=== PATIENT | female | born 1945 | race Two or more races ===

== ENCOUNTER → 2025-02-01 | Outpatient (CLI) | payer MEDICARE, BC, SELFPAY ==
[2025-02-01 10:15] LABS: Basophils # (Auto) 0.0 Thou/mm3 (0.0-0.2); Basophils % (Auto) 1 % (0-2.5); Eosinophils # (Auto) 0.4 Thou/mm3 (0.0-0.5); Eosinophils % (Auto) 12 % (0-10); Hematocrit 41.4 % (36.0-46.0); Hemoglobin 13.8 g/dL (12.0-16.0); Immature Granulocytes Auto 0.00 Thou/mm3 (0.00-0.00); Lymphocytes # (Auto) 1.1 Thou/mm3 (1.0-4.8); Lymphocytes % (Auto) 30 % (10-50); Mean Corpuscular HGB Conc 33.3 g/dl (31.0-37.0); Mean Corpuscular Hemoglobin 30.1 pg (25.0-35.0); Mean Corpuscular Volume 90 fL (80-100); Monocytes # (Auto) 0.3 Thou/mm3 (0.0-0.8); Monocytes % (Auto) 8 % (0-12); Neutrophils # (Auto) 1.8 Thou/mm3 (1.8-7.7); Neutrophils % (Auto) 50 % (37-80); Nucleated Red Blood Cell # 0.00 Thou/mm3 (0.00-0.00); Nucleated Red Blood Cell % 0 /100 WBC (0); Platelet Count 175 Thou/mm3 (140-440); RDW Standard Deviation 44.8 fL (36.4-46.3); Red Blood Count 4.58 Miln/mm3 (4.00-5.20); White Blood Count 3.6 Thou/mm3 (3.6-11.0)
[2025-02-01 10:58] LABS: Alanine Aminotransferase 18 U/L (10-49); Albumin, Serum 4.0 gm/dL (3.4-4.8); Albumin/Globulin Ratio 1.9 (1.2-2.2); Alkaline Phosphatase 102 U/L (46-116); Anion Gap 12 (7-16); Aspartate Amino Transferase 22 U/L (0-34); BUN/Creatinine Ratio 15 Ratio (12-20); Bilirubin,Total 0.9 mg/dL (0.3-1.2); Blood Urea Nitrogen 12 mg/dL (9-23); Calcium 9.4 mg/dL (8.3-10.6); Calcium (Corrected) 9.4 mg/dL (8.5-10.1); Carbon Dioxide 27.8 mMol/L (20.0-31.0); Cardiac Risk Estimate 2.5 RATIO (3.7-5.6); Chloride 108 mMol/L (98-107); Cholesterol 153 mg/dL (132-200); Creatinine (Component) 0.8 mg/dL (0.6-1.3); Free T4 (Free Thyroxine) 1.16 ng/dL (0.89-1.76); Globulin 2.1 gm/dL (2.3-3.5); Glucose 97 mg/dL (74-106); HDL Cholesterol 62 mg/dL (40-60); LDL Cholesterol,Calculated 69 mg/dL (0-130); Osmolality,Calculated 293 (275-295); Potassium 4.3 mMol/L (3.4-5.1); Sodium 148 mMol/L (136-145); Thyroid Stimulating Hormone 2.53 uIU/mL (0.55-4.78); Total Protein 6.1 gm/dL (5.7-8.2); Triglycerides 110 mg/dL (30-150); eGFR > 60 See Note
== END | disposition home or self-care (01) ==
LOC: COPL 09:46
PROVIDERS: PCP Family Medicine; Referring Provider Internal Medicine Cardiovascular Disease; Visit Provider Internal Medicine Cardiovascular Disease
DX: E78.00 Pure hypercholesterolemia, unspecified (principal)
CPT/HCPCS: 36415; 80053; 80061; 84439; 84443; 85025

== ENCOUNTER 2025-04-26 10:03 | Day surgery (SDC) | payer MEDICARE, BC, SELFPAY ==
[2025-04-24 15:15] VITALS: BMI 37.4
--- NOTE | 2025-04-25 07:00 | EKG_ITS ---
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
[2025-04-25 11:29] LABS: Basophils # (Auto) 0.0 Thou/mm3 (0.0-0.2); Basophils % (Auto) 1 % (0-2.5); Eosinophils # (Auto) 0.3 Thou/mm3 (0.0-0.5); Eosinophils % (Auto) 9 % (0-10); Hematocrit 42.1 % (36.0-46.0); Hemoglobin 13.6 g/dL (12.0-16.0); Immature Granulocytes Auto 0.01 Thou/mm3 (0.00-0.00); Lymphocytes # (Auto) 0.9 Thou/mm3 (1.0-4.8); Lymphocytes % (Auto) 26 % (10-50); Mean Corpuscular HGB Conc 32.3 g/dl (31.0-37.0); Mean Corpuscular Hemoglobin 30.2 pg (25.0-35.0); Mean Corpuscular Volume 94 fL (80-100); Monocytes # (Auto) 0.3 Thou/mm3 (0.0-0.8); Monocytes % (Auto) 8 % (0-12); Neutrophils # (Auto) 2.0 Thou/mm3 (1.8-7.7); Neutrophils % (Auto) 56 % (37-80); Nucleated Red Blood Cell # 0.00 Thou/mm3 (0.00-0.00); Nucleated Red Blood Cell % 0 /100 WBC (0); Platelet Count 173 Thou/mm3 (140-440); RDW Standard Deviation 49.0 fL (36.4-46.3); Red Blood Count 4.50 Miln/mm3 (4.00-5.20); White Blood Count 3.6 Thou/mm3 (3.6-11.0)
[2025-04-25 11:37] LABS: Anion Gap 8 (7-16); BUN/Creatinine Ratio 19 Ratio (12-20); Blood Urea Nitrogen 13 mg/dL (9-23); Calcium 9.7 mg/dL (8.3-10.6); Carbon Dioxide 28.0 mMol/L (20.0-31.0); Chloride 109 mMol/L (98-107); Creatinine (Component) 0.7 mg/dL (0.6-1.3); Estimated Creatinine Clearance 68.6 mL/min (>60); Glucose 99 mg/dL (74-106); Osmolality,Calculated 288 (275-295); Potassium 4.2 mMol/L (3.4-5.1); Sodium 145 mMol/L (136-145); eGFR > 60 See Note
[2025-04-25 11:38] LABS: INR 1.0 (0.9-1.3); Partial Thromboplastin Time 25.8 Seconds (22.0-36.0); Prothrombin Time 10.3 Seconds (9.0-12.2)
[2025-04-26] VITALS (16 sets, daily range): BP systolic 117–157; BP diastolic 70–99; PULSE 60–67; RESP 12–19; TEMP 36.7–37.1; O2SAT 94–99
--- NOTE | 2025-04-26 10:40 | SUR.PREOP ---
Patient expressed gratitude for the visit.
[2025-04-26] MEDS: SODIUM CHLORIDE 0.45 % 500 ML 100 ML IV (12:45)
[2025-04-26] MEDS: HYDROcodone/APAP 5/325 TABLET 1 TAB PO (12:58)
--- NOTE | 2025-04-26 13:06 | PC.NURSE ---
patient arrived to recovery with a stable hematoma to the right leg and right arm. site assessed. site is soft, flat, tender, and no new signs of hematoma on both arm and legs. dressings are clean dry and intact on both arm and leg.
--- NOTE | 2025-04-26 13:23 | ESOP_ITS ---
RE: SCOTT HESS : 1945 DATE OF OPERATION: 04/26/2025 PROCEDURES PERFORMED: 1. Diagnostic left heart catheterization, selective coronary angiogram, left ventricular angiogram, CPT 94666. 2. Conscious sedation for 30-minute duration. 3. Ultrasound-guided access of right femoral artery. 4. Iliofemoral angiogram. DIAGNOSES: Coronary artery disease status post stent placement, recurrent chest pain, , shortness of breath. HISTORY AND INDICATION: The patient is a 79-year-old female with a past medical history of hypertension and history of CAD status post multiple stent placement in left anterior descending artery only, mild LV dysfunction, ejection fraction 45-50% with apical septal wall motion abnormalities. The patient continues to have shortness of breath and slightly abnormal nuclear imaging, hence coronary angiogram was recommended to assess the patient is candidate for PCI intervention. PROCEDURE IN DETAIL: The patient was brought to the cardiac catheterization laboratory. She was given 2 mg of Versed for sedation, 100 mcg of fentanyl for conscious sedation. Initial right radial approach was taken. Right radial artery was punctured with micropuncture, but could not advance the wire because small vessel heavily calcified and switched to femoral approach. Right femoral artery was cannulated with micropuncture technique and a 5-Thai sheath was introduced. Selective right and left coronary angiogram performed by 5-Thai FR4, FL4 diagnostic catheter. Left heart catheterization and left ventricular angiogram performed by 5-Thai FR4 diagnostic catheter. The patient tolerated the procedure well. No complications. Left ventricular angiogram performed. Following diagnostic procedure, iliofemoral angiogram was performed. Angio-Seal could not be deployed because of heavy calcification of femoral artery. FINDINGS: As follows: Cardiac catheterization showed following findings: Left ventricular pressure is 145, EDP is 22 mmHg. Aortic pressure 148/65. No gradient across the aortic valve. Left ventricular angiogram showed evidence of anterolateral hypokinesis, ejection fraction , mild LV dysfunction. No significant mitral regurgitation. Coronary angiogram showed following findings: Right coronary is large and dominant, appears normal. PDA and PL branches are normal. Left coronary system: Left main coronary is normal. Left anterior descending artery showed two stents in the proximal mid segment, widely patent. Circumflex artery is small and nondominant, appears normal. Iliofemoral angiogram showed calcification of femoral artery. At site of puncture of the common femoral artery, no significant stenosis. SUMMARY OF FINDINGS AND SUGGESTIONS: 1. Widely patent stents involving proximal mid left anterior descending artery. 2. No restenosis. 3. Mild anterolateral hypokinesis, ejection fraction 45-50%. RECOMMENDATION: The patient is recommended to continue medical management. Prognosis is excellent, but she does have a mild to moderate LV dysfunction. We will manage ELIU and beta-blockers. DT: 12:37:29 TT: 13:17:00 Ref: [id number] - TID: [id number]
--- NOTE | 2025-04-26 16:33 | PC.NURSE ---
patient transferred to private vehicle vias wheelchair. patient sites are soft, flat, tender, and no new signs of hematoma. prior hematoma stablized on both right hands and right leg. dressings are clean, dry, and intact on both right hand and right leg. education given to both patient and daughter in law. both expressed verbal understanding.
== END 2025-04-26 16:28 | disposition home or self-care (01) ==
PROVIDERS: PCP Family Medicine; Referring Provider Internal Medicine Cardiovascular Disease; Visit Provider Internal Medicine Cardiovascular Disease
PROC: (CPT 93458; principal; 2025-04-26 11:30)
DX: I25.118 Atherosclerotic heart disease of native coronary artery with other forms of angina pectoris (principal); E78.00 Pure hypercholesterolemia, unspecified; Z95.5 Presence of coronary angioplasty implant and graft; I10 Essential (primary) hypertension
CPT/HCPCS: 93458; G0278; 36415; 80048; 85025; 85610; 85730; 93005; 99152; 99153; A4649; C1894; J0168; J0461; J1643; J2250; J2312; J2371; J3010; J3490; J7030; Q9967; A9270; J2305